=== PATIENT | female | born 1955 | race Native Hawaiian/Other Pacific Islander ===

== ENCOUNTER 2017-06-10 08:09 | Day surgery (SDC) | payer BC ==
[2017-06-06 11:21] VITALS: BMI 21.7
[2017-06-10] MEDS ORDERED: Propofol 10 mg/ml Inj (20 ML) ONE (11:45)
[2017-06-10 14:20] VITALS: BP 136/74; PULSE 71; RESP 18; TEMP 98; O2SAT 100
--- NOTE | 2017-06-16 08:29 | OP ---
PROCEDURE DATE: 06/10/2017 LOCATION: [facility]. PREOPERATIVE DIAGNOSES: Postmenopausal status, thickened endometrium, possible endometrial polyp. POSTOPERATIVE DIAGNOSES: Thickened endometrium and polyp. PRIMARY SURGEON: Susy Lovell MD OPERATIVE PROCEDURE: Hysteroscopy with visually-directed dilatation and curettage. OPERATING FINDINGS: Thickened, but atrophic endometrium, small polyps. ESTIMATED BLOOD LOSS: 5 mL. ANESTHESIA: LMA. SPECIMEN: Directed endometrial curetting. FLUID DEFICIT: 200 mL of normal saline. OPERATIVE PROCEDURE: The patient was taken to the OR where general anesthesia was induced and LMA was placed. She was placed in the usual dorsal lithotomy position and prepped and draped in the usual sterile fashion. The cervix was grasped with tenaculum and cervix was sterilely dilated easily to allow the passage of the MyoSure operative hysteroscope. Normal saline was used as distention medium. There was no evidence of perforation. The uterus was examined with the findings above. Directed curettage was performed with the MyoSure device. There was excellent hemostasis. The patient tolerated the procedure well. All sponge, laps and needles counts were correct at the end of the case. Susy Lovell MD
== END 2017-06-10 14:52 | disposition home or self-care (01) ==
LOC: C.SDS 08:09
PROVIDERS: ATTEND Obstetrics & Gynecology
DX: N85.01 Benign endometrial hyperplasia (principal); Z79.82 Long term (current) use of aspirin; Z79.84 Long term (current) use of oral hypoglycemic drugs; E11.9 Type 2 diabetes mellitus without complications; Z85.3 Personal history of malignant neoplasm of breast; Z80.3 Family history of malignant neoplasm of breast; F32.9 Major depressive disorder, single episode, unspecified; E55.9 Vitamin D deficiency, unspecified; E78.00 Pure hypercholesterolemia, unspecified; Z82.49 Family history of ischemic heart disease and other diseases of the circulatory system; Z83.3 Family history of diabetes mellitus; Z78.0 Asymptomatic menopausal state; N85.8 Other specified noninflammatory disorders of uterus
CPT/HCPCS: 58558; 82948; 88305; J1885; J2405; J2704; J3010